=== PATIENT | male | born 1950 | race Caucasian/White ===

== ENCOUNTER 2017-01-02 06:25 | Day surgery (SDC) | payer OTHER, MEDICARE ==
[~2017-01-02] VITALS: Ht 193 cm; Wt 107.3 kg
[~2017-01-02 06:25] MED LIST: ACET-2321 PO; ASPI-558 PO; ATOR20TA59 PO; CALC600T86 PO; CETI10CA19 PO; FLUT16SP12 NS; LISI-15 PO; MULT-543 PO; OMEP20TA24 PO; POLY17PO6 PO
--- OUTSIDE RECORDS SUMMARY | 2017-01-02 06:29 | XMS REPORT | Referral Summary ---
Author Author [facility] Organization [facility] Address Unknown Phone Unavailable Care Team Providers Care Anesthetic Assistant Name Role Phone Myron Avila Primary Care Physician [phone] Encounter VC Date(s): 03/27/15 - 03/27/15 [facility] [address] [place] [address] Discharge Diagnosis: Pure hypercholesterolemia Discharge Diagnosis: Allergic rhinitis Discharge Diagnosis: Benign essential hypertension Discharge Diagnosis: Gastroesophageal reflux disease Discharge Disposition: 01-Home or Self Care Attending Physician: Papi Avila MD Admitting Physician: Papi Avila MD Vital Signs Most recent to 1 oldest [Reference Range]: Temperature Tympanic 35.7 degC [36.6-38.1 degC] *LOW* (03/27/15 10:07 AM) Peripheral Pulse 64 bpm Rate [60-100 bpm] (03/27/15 10:07 AM) Blood Pressure 130/71 mmHg [90-140/60-90 mmHg] (03/27/15 10:07 AM) Problem List Condition Effective Dates Status Health Status Informant Allergic Active rhinitis/hay fever(Confirmed) Allergic rhinitis Active (disorder)(Confirmed ) Allergies(Confirmed) Resolved Benign essential Active hypertension (disorder)(Confirmed ) BPH - history of BPH Resolved w/pro statism(Confirmed) Circumcision(Confirm Resolved ed) Foot pain, Active left(Confirmed) Gastroesophageal Active reflux disease (disorder)(Confirmed ) GERD Resolved (gastroesophageal reflux disease)(Confirmed) Hernia(Confirmed) Resolved History of - Resolved irregular prostate gland(Confirmed) Hyperlipidemia(Confi Resolved rmed) Hypertension(Confirm Resolved ed) IFG (impaired Active fasting glucose)(Confirmed) Pain in limb Active (finding)(Confirmed) Pure Active hypercholesterolemia (disorder)(Confirmed ) Tonsillectomy(Confir Resolved med) Allergies, Adverse Reactions, Alerts No Known Medication Allergies Medications Aspirin Low Strength 81 mg, Oral, Daily, 0 Refill(s) Start Date: 03/22/14 Status: Ordered atorvastatin 20 mg oral tablet See Instructions, TAKE ONE TABLET BY MOUTH DAILY, # 30 tabs, 5 Refill(s), eRx: [facility] #[id number], TAKE ONE TABLET BY MOUTH DAILY Start Date: 05/16/15 Status: Ordered Calcium 600+D 1 tabs, Oral, Daily, 0 Refill(s) Start Date: 03/23/14 Status: Ordered lisinopril-hydrochlorothiazide 20 mg-12.5 mg oral tablet See Instructions, TAKE ONE TABLET BY MOUTH ONE TIME A DAY, # 90 tabs, 1 Refill(s ), eRx: [facility] #[id number], TAKE ONE TABLET BY MOUTH ONE TIME A DAY Start Date: 05/16/15 Status: Ordered multivitamin 1 tabs, Oral, Daily, 0 Refill(s) Start Date: 03/23/14 Status: Ordered omeprazole 20 mg oral delayed release tablet tabs, Oral, Daily, 0 Refill(s) Start Date: 03/22/14 Status: Ordered Laguerre Stool Softener mg, Oral, BID, 0 Refill(s) Start Date: 06/26/14 Status: Ordered Tylenol Caplet 325 mg, Oral, q4hr, as needed for pain, 0 Refill(s) Start Date: 03/22/14 Status: Ordered ZyrTEC Daily, 0 Refill(s) Start Date: 06/28/15 Status: Ordered Results No data available for this section Immunizations Vaccine Date Refusal Reason tetanus/diphth/pertuss (Tdap) adult/adol 03/01/10 influenza virus vaccine, inactivated1 07/18/14 influenza virus vaccine, live 07/06/13 influenza virus vaccine, live 07/20/12 1Location History: See scanned document Procedures Procedure Date Related Diagnosis Body Site S/P left inguinal hernia repair 10/23/11 Cystoscopy - video 01/20/11 Prostate - transrectal needle biopsy of 01/20/11 prostate Rt inguinal hernia repair 08/11/08 Tonsillectomy and adenoidectomy 1970 Colonoscopy1 H/O circumcision 1DUE 2016. NEG on 10-26-06, Dr. So. Social History Social History Type Response Smoking Status Never smoker Assessment and Plan Extracted from: Title: CRMMP Author: Papi Avila MD Date: 03/27/15 Assessment/Plan Allergic rhinitis Benign essential hypertension Gastroesophageal reflux disease Pure hypercholesterolemia Orders: atorvastatin, 20 mg 1 tabs, Oral, Daily, # 30 tabs, 1 Refill(s), Pharmacy: [facility] #[id number], 1 tabs Oral Daily Restarted atorvastatin will recheck lipids in one month. Otherwise continue present care. History guidance provided. Follow-up 6 months regarding blood pressure or sooner if needed.
--- OUTSIDE RECORDS SUMMARY | 2017-01-02 06:29 | XMS REPORT | Referral Summary ---
Author Author [facility] Organization [facility] Address Unknown Phone Unavailable Care Team Providers Care Automation Qa Analyst Name Role Phone Myron Avila Primary Care Physician [phone] Encounter VC Date(s): 11/10/16 - 11/10/16 [facility], [address] [place] [address] Discharge Diagnosis: Sinusitis Discharge Disposition: 01-Home or Self Care Attending Physician: Papi Avila MD Admitting Physician: Papi Avila MD Vital Signs Most recent to 1 oldest [Reference Range]: Temperature Tympanic 36.4 degC [36.6-38.1 degC] *LOW* (11/10/16 11:36 AM) Blood Pressure 158/82 mmHg [90-140/60-90 mmHg] *HI* (11/10/16 11:36 AM) Problem List Condition Effective Dates Status [...] Reactions, Alerts No Known Medication Allergies Medications amoxicillin 875 mg oral tablet 875 mg 1 tabs, Oral, BID, X 10 days, # 20 tabs, 0 Refill(s), Pharmacy: [facility] #[id number], 1 tabs Oral BID,x10 days Start Date: 11/10/16 Stop Date: 11/20/16 Status: Ordered Aspirin Low Strength 81 mg, Oral, Daily, 0 Refill(s) Start Date: 03/22/14 Status: Ordered atorvastatin 20 mg oral tablet See Instructions, TAKE ONE TABLET BY MOUTH DAILY, # 90 tabs, 2 Refill(s), eRx: [facility] #[id number] Start Date: 10/08/16 Status: Ordered Calcium 600+D 1 tabs, Oral, Daily, 0 Refill(s) Start Date: 03/23/14 Status: Ordered fluticasone 50 mcg/inh nasal spray See Instructions, SPRAY TWO SPRAYS IN EACH NOSTRIL EVERY DAY NEEDED, # 16 unknown unit, 2 Refill(s), eRx: [facility] #[id number], SPRAY TWO SPRAYS IN EACH NOSTRIL EVERY DAY NEEDED Start Date: 07/15/16 Status: Ordered lisinopril-hydrochlorothiazide 20 mg-12.5 mg oral tablet See Instructions, TAKE ONE TABLET BY MOUTH ONE TIME A DAY, # 90 tabs, 1 Refill(s ), eRx: [facility] #[id number], TAKE ONE TABLET BY MOUTH ONE TIME A DAY Start Date: 05/19/16 Status: Ordered Mucinex 600 mg oral tablet, extended release 600 mg 1 tabs, Oral, q12hr, 0 Refill(s) Start Date: 11/10/16 Status: Ordered multivitamin 1 tabs, Oral, Daily, 0 Refill(s) Start Date: 03/23/14 Status: Ordered omeprazole 20 mg oral delayed release tablet tabs, Oral, Daily, 0 Refill(s) Start Date: 03/22/14 Status: Ordered Laguerre Stool Softener mg, Oral, BID, 0 Refill(s) Start Date: 06/26/14 Status: Ordered Tylenol Caplet 325 mg, Oral, q4hr, as needed for pain, 0 Refill(s) Start Date: 03/22/14 Status: Ordered Results No data available for this section Immunizations Given and Recorded Vaccine Date Status Refusal Reason tetanus/diphth/pertuss (Tdap) adult/adol 03/01/10 Recorded influenza virus vaccine, inactivated 06/23/16 Given influenza virus vaccine, inactivated 08/16/15 Given influenza virus vaccine, inactivated1 07/18/14 Recorded influenza virus vaccine, live 07/06/13 Given influenza virus vaccine, live 07/20/12 Given pneumococcal 13-valent conjugate vaccine 03/26/16 Given 1Location History: See scanned document Procedures Procedure [...] smoker Assessment and Plan Extracted from: Title: Acute OV-Congestion Author: Papi Avila MD Date: 11/10/16 Impression and Plan Diagnosis Sinusitis ([id number] J32.9, Discharge, Medical). Orders Orders (Selected) Prescriptions Prescribed amoxicillin 875 mg oral tablet: 875 mg=1 tabs, Oral, BID, for 10 days, 20 tabs, 0 Refill(s).
--- OUTSIDE RECORDS SUMMARY | 2017-01-02 06:29 | XMS REPORT | Referral Summary ---
Author Author [facility] Organization [facility] Address Unknown Phone Unavailable Care Team Providers Care Protection Agent Name Role Phone Myron Avila Primary Care Physician [phone] Encounter VC Date(s): 06/28/15 - 06/28/15 [facility] [address] [place] [address] [place] [address] [place] Discharge Diagnosis: Benign prostatic hyperplasia Discharge Diagnosis: Benign localized prostatic hyperplasia with lower urinary tract symptoms (LUTS) Discharge Disposition: -Home or Self Care Attending Physician: Vinod Bryan JR, MD Admitting Physician: Vinod Bryan JR, MD Vital Signs Most recent to 1 oldest [Reference Range]: Peripheral Pulse 76 bpm Rate [60-100 bpm] (06/28/15 10:00 AM) Blood Pressure 138/72 mmHg [90-140/60-90 mmHg] (06/28/15 10:00 AM) Problem List Condition Effective Dates Status [...] DAILY, # 30 tabs, 5 Refill(s), eRx: [facility] #[id number], TAKE ONE TABLET BY MOUTH DAILY Start Date: 05/16/15 Status: Ordered Calcium 600+D 1 tabs, Oral, Daily, 0 Refill(s) Start Date: 03/23/14 Status: Ordered lisinopril-hydrochlorothiazide 20 mg-12.5 mg oral tablet See Instructions, TAKE ONE TABLET BY MOUTH ONE TIME A DAY, # 90 tabs, 1 Refill(s ), eRx: [facility] #[id number], TAKE ONE TABLET BY MOUTH ONE TIME [...] smoker Assessment and Plan Extracted from: Title: Ambulatory Patient Education Author: Vinod Bryan JR, MD Date : 06/28/15 Follow Up With: Where: When: Papi Avila [address] [place] [address] [address]; Via [facility] [place], [place] [address] Business (1) Within 3 to 5 days Comments: Follow Up With: Where: When: Vinod Bryan [address] [facility] [address] [facility] [address]; Via [facility] [place] [address] Business (1) In 1 year 06/28/2016 Comments: Extracted from: Title: Office Visit Note Author: Vinod Bryan JR, MD Date: 06/28/15 Assessment/Plan 1.Benign prostatic hyperplasia patient's very minimally symptomatic. Not taking any prostate medication at present. His most recent PSA is this and 0.7. History of nodular prostate still is present on this prostate examination today. Recheck in my office in one year PSA a week before next visit or sooner if he has troubles with urination or seeing blood in his urine Benign localized prostatic hyperplasia with lower urinary tract symptoms (LUTS ) Ordered: Office Visit Level 3 Est [address]
--- OUTSIDE RECORDS SUMMARY | 2017-01-02 06:29 | XMS REPORT | Referral Summary ---
Author Author [facility] Organization [facility] Address Unknown Phone Unavailable Care Team Providers Care Diesel Locomotive Crane Operator Name Role Phone Myron Avila Primary Care Physician [phone] Encounter VC Date(s): 06/28/15 - 06/28/15 [facility] [address] [place] [address] [place] [address] [place] Discharge Diagnosis: Benign [...] DAILY, # 30 tabs, 5 Refill(s), eRx: [facility] #[id number], TAKE ONE TABLET BY MOUTH DAILY Start Date: 05/16/15 Status: Ordered Calcium 600+D 1 tabs, Oral, Daily, 0 Refill(s) Start Date: 03/23/14 Status: Ordered lisinopril-hydrochlorothiazide 20 mg-12.5 mg oral tablet See Instructions, TAKE ONE TABLET BY MOUTH ONE TIME A DAY, # 90 tabs, 1 Refill(s ), eRx: [facility] #[id number], TAKE ONE TABLET BY MOUTH ONE TIME [...] Follow Up With: Where: When: Papi Avila [address] [place] [address]; Via [facility] [place], [place] [address] Business (1) Within 3 to 5 days Comments: Follow Up With: Where: When: Vinod Bryan [address] [facility] [address]; Via [facility] [place], [place] [address] Business (1) In 1 year 06/28/2016 Comments: [...] ) Ordered: Office Visit Level 3 Est [address]
--- OUTSIDE RECORDS SUMMARY | 2017-01-02 06:29 | XMS REPORT | Referral Summary ---
Author Author [facility] Organization [facility] Address Unknown Phone Unavailable Care Team Providers Care Pricing Director Name Role Phone Myron Avila Primary Care Physician [phone] Encounter VC Date(s): 06/28/15 - 06/28/15 [facility] [address] [place] [address] [place] [address] [place] Discharge Diagnosis: Benign [...] DAILY, # 30 tabs, 5 Refill(s), eRx: [facility] #[id number], TAKE ONE TABLET BY MOUTH DAILY Start Date: 05/16/15 Status: Ordered Calcium 600+D 1 tabs, Oral, Daily, 0 Refill(s) Start Date: 03/23/14 Status: Ordered lisinopril-hydrochlorothiazide 20 mg-12.5 mg oral tablet See Instructions, TAKE ONE TABLET BY MOUTH ONE TIME A DAY, # 90 tabs, 1 Refill(s ), eRx: [facility] #[id number], TAKE ONE TABLET BY MOUTH ONE TIME [...] Follow Up With: Where: When: Papi Avila [address] [place] [address]; Via [facility] [place], [place] [address] Business (1) Within 3 to 5 days Comments: Follow Up With: Where: When: Vinod Bryan [address] [facility] [address]; Via [facility] [place] [address] Business (1) In 1 year 06/28/2016 Comments: [...] ) Ordered: Office Visit Level 3 Est [address]
--- OUTSIDE RECORDS SUMMARY | 2017-01-02 06:29 | XMS REPORT | Referral Summary ---
Author Author [facility] Organization [facility] Address Unknown Phone Unavailable Care Team Providers Care Film Painter Name Role Phone Myron Avila Primary Care Physician [phone] Encounter VC Date(s): 03/27/15 - 03/27/15 [facility] [address] [place] [address] [place] Discharge Diagnosis: Pure hypercholesterolemia [...] DAILY, # 30 tabs, 5 Refill(s), eRx: [facility] #[id number], TAKE ONE TABLET BY MOUTH DAILY Start Date: 05/16/15 Status: Ordered Calcium 600+D 1 tabs, Oral, Daily, 0 Refill(s) Start Date: 03/23/14 Status: Ordered lisinopril-hydrochlorothiazide 20 mg-12.5 mg oral tablet See Instructions, TAKE ONE TABLET BY MOUTH ONE TIME A DAY, # 90 tabs, 1 Refill(s ), eRx: [facility] #[id number], TAKE ONE TABLET BY MOUTH ONE TIME [...] Daily, # 30 tabs, 1 Refill(s), Pharmacy: [facility] #[id number], 1 tabs Oral Daily Restarted atorvastatin will recheck lipids in one month. Otherwise continue present care. History guidance provided. Follow-up 6 months regarding blood pressure or sooner if needed.
--- OUTSIDE RECORDS SUMMARY | 2017-01-02 06:30 | XMS REPORT | Referral Summary ---
Author Author [facility] Organization [facility] Address Unknown Phone Unavailable Care Team Providers Care Manuscript Editor Name Role Phone Myron Avila Primary Care Physician [phone] Encounter VC Date(s): 06/28/15 - 06/28/15 [facility] [address] [place] [address] [place] [address] [place] Discharge Diagnosis: Benign [...] DAILY, # 30 tabs, 5 Refill(s), eRx: [facility] #[id number], TAKE ONE TABLET BY MOUTH DAILY Start Date: 05/16/15 Status: Ordered Calcium 600+D 1 tabs, Oral, Daily, 0 Refill(s) Start Date: 03/23/14 Status: Ordered lisinopril-hydrochlorothiazide 20 mg-12.5 mg oral tablet See Instructions, TAKE ONE TABLET BY MOUTH ONE TIME A DAY, # 90 tabs, 1 Refill(s ), eRx: [facility] #[id number], TAKE ONE TABLET BY MOUTH ONE TIME [...] Follow Up With: Where: When: Papi Avila [address] [place] [address] [address]; Via [facility] [place] [address] Business (1) Within 3 to 5 days Comments: Follow Up With: Where: When: Vinod Bryan [address] [facility] [address]; Via [facility] [place] [address] Business (1) In 1 year 06/28/2016 Comments: [...] ) Ordered: Office Visit Level 3 Est [address]
--- OUTSIDE RECORDS SUMMARY | 2017-01-02 06:30 | XMS REPORT | Referral Summary ---
Author Author [facility] Organization [facility] Address Unknown Phone Unavailable Care Team Providers Care Bean Sorter Name Role Phone Myron Avila Primary Care Physician [phone] Encounter VC Date(s): 09/24/15 - 09/24/15 [facility], [address] [place] [address] [place] Discharge Diagnosis: Benign essential hypertension Discharge Disposition: 01-Home or Self Care Attending Physician: Papi Avila MD Admitting Physician: Papi Avila MD Vital Signs Most recent to 1 oldest [Reference Range]: Temperature Tympanic 36.3 degC [36.6-38.1 degC] *LOW* (09/24/15 11:23 AM) Peripheral Pulse 64 bpm Rate [60-100 bpm] (09/24/15 11:23 AM) Blood Pressure 142/80 mmHg [90-140/60-90 mmHg] *HI* (09/24/15 11:23 AM) Problem List Condition Effective Dates Status [...] Status: Ordered atorvastatin 20 mg oral tablet 20 mg 1 tabs, Oral, Daily, # 90 tabs, 3 Refill(s), Pharmacy: [facility] # [id number], 1 tabs Oral Daily Start Date: 09/24/15 Status: Ordered Calcium 600+D 1 tabs, Oral, Daily, 0 Refill(s) Start Date: 03/23/14 Status: Ordered lisinopril-hydrochlorothiazide 20 mg-12.5 mg oral tablet See Instructions, TAKE ONE TABLET BY MOUTH ONE TIME A DAY, # 90 tabs, 1 Refill(s ), eRx: [facility] #[id number], TAKE ONE TABLET BY MOUTH ONE TIME [...] tetanus/diphth/pertuss (Tdap) adult/adol 03/01/10 influenza virus vaccine, inactivated 08/16/15 influenza virus vaccine, inactivated1 07/18/14 influenza virus [...] smoker Assessment and Plan Extracted from: Title: Office Visit Note Author: Papi Avila MD Date: 09/24/15 Assessment/Plan Benign essential hypertension Orders: atorvastatin, 20 mg 1 tabs, Oral, Daily, # 90 tabs, 3 Refill(s), Pharmacy: [facility] #[id number], 1 tabs Oral Daily Overall the blood pressure seems to be adequately controlled and we will continue current medications. His cuff seems to be accurate and we discussed appropriate technique but will also continue to use the cuff. Follow-up 6 months or as needed.
--- OUTSIDE RECORDS SUMMARY | 2017-01-02 06:30 | XMS REPORT | Referral Summary ---
Author Author [facility] Organization [facility] Address Unknown Phone Unavailable Care Team Providers Care Acid Tender Name Role Phone Myron Avila Primary Care Physician [phone] Encounter VC Date(s): 03/27/15 - 03/27/15 [facility] [address] [place] [address] [place] Discharge Diagnosis: [...] DAILY, # 30 tabs, 5 Refill(s), eRx: [facility] #[id number], TAKE ONE TABLET BY MOUTH DAILY Start Date: 05/16/15 Status: Ordered Calcium 600+D 1 tabs, Oral, Daily, 0 Refill(s) Start Date: 03/23/14 Status: Ordered lisinopril-hydrochlorothiazide 20 mg-12.5 mg oral tablet See Instructions, TAKE ONE TABLET BY MOUTH ONE TIME A DAY, # 90 tabs, 1 Refill(s ), eRx: [facility] #[id number], TAKE ONE TABLET BY MOUTH ONE TIME [...] Daily, # 30 tabs, 1 Refill(s), Pharmacy: [facility] #[id number], 1 tabs Oral Daily Restarted atorvastatin will recheck lipids in one month. Otherwise continue present care. History guidance provided. Follow-up 6 months regarding blood pressure or sooner if needed.
--- OUTSIDE RECORDS SUMMARY | 2017-01-02 06:30 | XMS REPORT | Referral Summary ---
Author Author [facility] Organization [facility] Address Unknown Phone Unavailable Care Team Providers Care Lease Picker Name Role Phone Myron Avila Primary Care Physician [phone] Encounter VC Date(s): 06/23/16 - 06/23/16 [facility] [address] [place] [address] [place] Discharge Diagnosis: Benign essential hypertension Discharge Diagnosis: Gastroesophageal reflux disease Discharge Diagnosis: Rising PSA level Discharge Diagnosis: BPH with obstruction/lower urinary tract symptoms Discharge Disposition: 01-Home or Self Care Attending Physician: Papi Avila MD Admitting Physician: Papi Avila MD Vital Signs Most recent to 1 oldest [Reference Range]: Peripheral Pulse 77 bpm Rate [60-100 bpm] (06/23/16 11:16 AM) Blood Pressure 130/78 mmHg [90-140/60-90 mmHg] (06/23/16 11:16 AM) Problem List Condition Effective Dates Status [...] Daily, # 90 tabs, 3 Refill(s), Pharmacy: [facility] # [id number], 1 tabs Oral Daily Start Date: 09/24/15 Status: Ordered Calcium 600+D 1 tabs, Oral, Daily, 0 Refill(s) Start Date: 03/23/14 Status: Ordered Flonase 50 mcg/inh nasal spray See Instructions, SPRAY TWO SPRAYS IN EACH NOSTRIL EVERY DAY NEEDED, # 16 unknown unit, 3 Refill(s), eRx: [facility] #[id number], SPRAY TWO SPRAYS IN EACH NOSTRIL EVERY DAY NEEDED Start Date: 12/25/15 Status: Ordered lisinopril-hydrochlorothiazide 20 mg-12.5 mg oral tablet See Instructions, TAKE ONE TABLET BY MOUTH ONE TIME A DAY, # 90 tabs, 1 Refill(s ), eRx: [facility] #[id number], TAKE ONE TABLET BY MOUTH ONE TIME A DAY Start Date: 05/19/16 Status: Ordered multivitamin 1 tabs, Oral, Daily, [...] (Tdap) adult/adol 03/01/10 influenza virus vaccine, inactivated 06/23/16 influenza virus vaccine, inactivated 08/16/15 influenza virus vaccine, inactivated1 07/18/14 influenza virus vaccine, live 07/06/13 influenza virus vaccine, live 07/20/12 pneumococcal 13-valent conjugate vaccine 03/26/16 1Location History: See scanned document Procedures Procedure [...] Assessment and Plan Extracted from: Title: Acute OV-Prostate Follow Up Author: Papi Avila MD Date: Impression and Plan Diagnosis Benign essential hypertension ([id number] I10, Discharge, Medical). BPH with obstruction/lower urinary tract symptoms (CRG60-RK N40.1, Discharge, Medical). Gastroesophageal reflux disease ([id number] K21.9, Discharge, Medical). Rising PSA level (TAI30-KI R97.2, Discharge, Medical).
--- OUTSIDE RECORDS SUMMARY | 2017-01-02 06:30 | XMS REPORT | Referral Summary ---
Author Author [facility] Organization [facility] Address Unknown Phone Unavailable Care Team Providers Care Criminal Researcher Name Role Phone Myron Avila Primary Care Physician [phone] Encounter VC Date(s): 06/28/15 - 06/28/15 [facility] [address] [place] [address] [place] [address] [place] Discharge Diagnosis: Benign [...] # 30 tabs, 5 Refill(s), eRx: [facility] #[id number], TAKE ONE TABLET BY MOUTH DAILY Start Date: 05/16/15 Status: Ordered Calcium 600+D 1 tabs, Oral, Daily, 0 Refill(s) Start Date: 03/23/14 Status: Ordered lisinopril-hydrochlorothiazide 20 mg-12.5 mg oral tablet See Instructions, TAKE ONE TABLET BY MOUTH ONE TIME A DAY, # 90 tabs, 1 Refill(s ), eRx: [facility] #[id number], TAKE ONE TABLET BY MOUTH ONE TIME [...] Follow Up With: Where: When: Papi Avila [address] [place] [address]; Via [facility] [place], [place] [address] Business (1) Within 3 to 5 days Comments: Follow Up With: Where: When: Vinod Bryan [address] [facility] [address]; Via [facility] [place], [place] [address] Business (1) In 1 year 06/28/2016 Comments: [...] ) Ordered: Office Visit Level 3 Est [id number]
--- OUTSIDE RECORDS SUMMARY | 2017-01-02 06:30 | XMS REPORT | Referral Summary ---
Author Author [facility] Organization [facility] Address Unknown Phone Unavailable Care Team Providers Care Rehabilitation Nurse Name Role Phone Myron Avila Primary Care Physician [phone] Encounter VC Date(s): 03/27/15 - 03/27/15 [facility] [address] [place] [address] Discharge Diagnosis: [...] DAILY, # 30 tabs, 5 Refill(s), eRx: [facility] #[id number], TAKE ONE TABLET BY MOUTH DAILY Start Date: 05/16/15 Status: Ordered Calcium 600+D 1 tabs, Oral, Daily, 0 Refill(s) Start Date: 03/23/14 Status: Ordered lisinopril-hydrochlorothiazide 20 mg-12.5 mg oral tablet See Instructions, TAKE ONE TABLET BY MOUTH ONE TIME A DAY, # 90 tabs, 1 Refill(s ), eRx: [facility] #[id number], TAKE ONE TABLET BY MOUTH ONE TIME [...] Daily, # 30 tabs, 1 Refill(s), Pharmacy: [facility] #[id number], 1 tabs Oral Daily Restarted atorvastatin will recheck lipids in one month. Otherwise continue present care. History guidance provided. Follow-up 6 months regarding blood pressure or sooner if needed.
--- OUTSIDE RECORDS SUMMARY | 2017-01-02 06:30 | XMS REPORT | Referral Summary ---
Author Author [facility] Organization [facility] Address Unknown Phone Unavailable Care Team Providers Care Ui Software Developer Name Role Phone Myron Avila Primary Care Physician [phone] Encounter VC Date(s): 03/27/15 - 03/27/15 [facility] [address] [place] [address] Discharge Diagnosis: [...] # 30 tabs, 5 Refill(s), eRx: [facility] #[id number], TAKE ONE TABLET BY MOUTH DAILY Start Date: 05/16/15 Status: Ordered Calcium 600+D 1 tabs, Oral, Daily, 0 Refill(s) Start Date: 03/23/14 Status: Ordered lisinopril-hydrochlorothiazide 20 mg-12.5 mg oral tablet See Instructions, TAKE ONE TABLET BY MOUTH ONE TIME A DAY, # 90 tabs, 1 Refill(s ), eRx: [facility] #[id number], TAKE ONE TABLET BY MOUTH ONE TIME [...] Daily, # 30 tabs, 1 Refill(s), Pharmacy: [facility] #[id number], 1 tabs Oral Daily Restarted atorvastatin will recheck lipids in one month. Otherwise continue present care. History guidance provided. Follow-up 6 months regarding blood pressure or sooner if needed.
--- OUTSIDE RECORDS SUMMARY | 2017-01-02 06:30 | XMS REPORT | Referral Summary ---
Author Author [facility] Organization [facility] Address Unknown Phone Unavailable Care Team Providers Care Stock Or Delivery Clerk Name Role Phone Myron Avila Primary Care Physician [phone] Encounter VC Date(s): 06/28/15 - 06/28/15 [facility] [address] [place] [address] [place] [address] Discharge Diagnosis: Benign [...] DAILY, # 30 tabs, 5 Refill(s), eRx: [facility] #[id number], TAKE ONE TABLET BY MOUTH DAILY Start Date: 05/16/15 Status: Ordered Calcium 600+D 1 tabs, Oral, Daily, 0 Refill(s) Start Date: 03/23/14 Status: Ordered lisinopril-hydrochlorothiazide 20 mg-12.5 mg oral tablet See Instructions, TAKE ONE TABLET BY MOUTH ONE TIME A DAY, # 90 tabs, 1 Refill(s ), eRx: [facility] #[id number], TAKE ONE TABLET BY MOUTH ONE TIME [...] Follow Up With: Where: When: Papi Avila [address] [place] [address]; Via [facility] [place] [address] Business (1) Within 3 to 5 days Comments: Follow Up With: Where: When: Vinod Bryan [address] [facility] [address] [facility] [address]; Via [facility] [place] [address] Business (1) In 1 year 06/28/2016 Comments: [...] ) Ordered: Office Visit Level 3 Est [address]
--- OUTSIDE RECORDS SUMMARY | 2017-01-02 06:30 | XMS REPORT | Continuity of Care Document ---
Author Author [facility] Organization [facility] Address Unknown Phone Unavailable Allergies Active Description Code Type Severity Reaction Onset Reported/Identified Relationship to Patient Clinical Status Yes No Known Medication Allergies NKMA N/A N/A 03/23/2014 Medications Problems Procedures Results Encounters ACCT No. Visit Date/Time Discharge Status Pt. Type Provider Facility Loc./Unit Complaint [id number] 12/22/2016 10:08:00 2016 23:59:00 DIS Outpatient Papi Avila V [facility] 6 month HTN repeat PSA [id number] 11/10/2016 11:31:00 2016 23:59:00 DIS Outpatient Papi Avila V [facility] COUGH SINUS [id number] 06/23/2016 11:05:00 2015 23:59:00 DIS Outpatient Papi Avila V [facility] TCPA YEARLY CHECK PROSTATE NORMALLY SEE DR BRYAN [id number] 03/26/2016 10:28:00 2015 23:59:00 DIS Outpatient Papi Avila V [facility] CRMMP [id number] 09/24/2015 11:03:00 2014 23:59:00 DIS Outpatient Papi Avila V [facility] 6MTH RCK CDM HTN [id number] 08/16/2015 15:41:00 2014 23:59:00 DIS Outpatient Papi Avila V [facility] FLU SHOT [id number] 06/28/2015 09:45:00 2014 23:59:00 DIS Outpatient Vinod Bryan [facility] Uro annual recheck [id number] 03/27/2015 09:51:00 2014 23:59:00 DIS Outpatient Papi Avila V [facility] 6MTH RCK CRMMP [id number] 09/22/2014 09:32:00 2013 23:59:00 DIS Outpatient Papi Avila V [facility] 6 mth cdm htn [id number] 09/07/2014 10:13:00 Document Registration
--- OUTSIDE RECORDS SUMMARY | 2017-01-02 06:30 | XMS REPORT | Referral Summary ---
Author Author [facility] Organization [facility] Address Unknown Phone Unavailable Care Team Providers Care Electric Gas Appliances Demonstrator Name Role Phone Myron Avila Primary Care Physician [phone] Encounter VC Date(s): 03/27/15 - 03/27/15 [facility] [address] [place] [address] [place] Discharge Diagnosis: [...] 30 tabs, 5 Refill(s), eRx: [facility] #[id number], TAKE ONE TABLET BY MOUTH DAILY Start Date: 05/16/15 Status: Ordered Calcium 600+D 1 tabs, Oral, Daily, 0 Refill(s) Start Date: 03/23/14 Status: Ordered lisinopril-hydrochlorothiazide 20 mg-12.5 mg oral tablet See Instructions, TAKE ONE TABLET BY MOUTH ONE TIME A DAY, # 90 tabs, 1 Refill(s ), eRx: [facility] #[id number], TAKE ONE TABLET BY MOUTH ONE TIME [...] Daily, # 30 tabs, 1 Refill(s), Pharmacy: [facility] #[id number], 1 tabs Oral Daily Restarted atorvastatin will recheck lipids in one month. Otherwise continue present care. History guidance provided. Follow-up 6 months regarding blood pressure or sooner if needed.
--- OUTSIDE RECORDS SUMMARY | 2017-01-02 06:30 | XMS REPORT | Referral Summary ---
Author Author [facility] Organization [facility] Address Unknown Phone Unavailable Care Team Providers Care Manager Agency Name Role Phone Myron Avila Primary Care Physician [phone] Encounter VC Date(s): 08/16/15 - 08/16/15 [facility] [address] [place] [address] [place] Discharge Disposition: 01-Home or Self Care Attending Physician: Papi Avila MD Admitting Physician: Papi Avila MD Vital Signs No data available for this section Problem List Condition Effective Dates Status Health [...] Refill(s), eRx: [facility] #[id number], TAKE ONE TABLET BY MOUTH DAILY Start Date: 05/16/15 Status: Ordered Calcium 600+D 1 tabs, Oral, Daily, 0 Refill(s) Start Date: 03/23/14 Status: Ordered lisinopril-hydrochlorothiazide 20 mg-12.5 mg oral tablet See Instructions, TAKE ONE TABLET BY MOUTH ONE TIME A DAY, # 90 tabs, 1 Refill(s ), eRx: [facility] #[id number], TAKE ONE TABLET BY MOUTH ONE TIME [...] Smoking Status Never smoker Assessment and Plan No data available for this section
--- OUTSIDE RECORDS SUMMARY | 2017-01-02 06:30 | XMS REPORT | Referral Summary ---
Author Author [facility] Organization [facility] Address Unknown Phone Unavailable Care Team Providers Care Salt Manager Name Role Phone Myron Avila Primary Care Physician [phone] Encounter VC Date(s): 06/28/15 - 06/28/15 [facility] [address] [place] [address] [place] [address] [place] Discharge Diagnosis: Benign [...] Refill(s), eRx: [facility] #[id number], TAKE ONE TABLET BY MOUTH DAILY Start Date: 05/16/15 Status: Ordered Calcium 600+D 1 tabs, Oral, Daily, 0 Refill(s) Start Date: 03/23/14 Status: Ordered lisinopril-hydrochlorothiazide 20 mg-12.5 mg oral tablet See Instructions, TAKE ONE TABLET BY MOUTH ONE TIME A DAY, # 90 tabs, 1 Refill(s ), eRx: [facility] #[id number], TAKE ONE TABLET BY MOUTH ONE TIME [...] Follow Up With: Where: When: Papi Avila [address] [place] [address]; Via [facility] [place], [place] [address] Business (1) Within 3 to 5 days Comments: Follow Up With: Where: When: Vinod Bryan [address] [facility] [address]; Via [facility] [place] [address] Business (1) In 1 year 06/28/2016 Comments: [...] ) Ordered: Office Visit Level 3 Est [address]68
--- OUTSIDE RECORDS SUMMARY | 2017-01-02 06:30 | XMS REPORT | Referral Summary ---
Author Author [facility] Organization [facility] Address Unknown Phone Unavailable Care Team Providers Care Television Parts Tester Name Role Phone Myron Avila Primary Care Physician [phone] Encounter VC Date(s): 06/28/15 - 06/28/15 [facility] [address] [place] [address] [place] [address] [place] Discharge Diagnosis: Benign [...] Daily, # 90 tabs, 3 Refill(s), Pharmacy: [facility] # [id number], 1 tabs Oral Daily Start Date: 09/24/15 Status: Ordered Calcium 600+D 1 tabs, Oral, Daily, 0 Refill(s) Start Date: 03/23/14 Status: Ordered Flonase 50 mcg/inh nasal spray See Instructions, SPRAY TWO SPRAYS IN EACH NOSTRIL EVERY DAY NEEDED, # 16 unknown unit, 3 Refill(s), eRx: [facility] #[id number], SPRAY TWO SPRAYS IN EACH NOSTRIL EVERY DAY NEEDED Start Date: 12/25/15 Status: Ordered lisinopril-hydrochlorothiazide 20 mg-12.5 mg oral tablet See Instructions, TAKE ONE TABLET BY MOUTH ONE TIME A DAY, # 90 tabs, 1 Refill(s ), eRx: [facility] #[id number], TAKE ONE TABLET BY MOUTH ONE TIME A DAY Start Date: 11/26/15 Status: Ordered multivitamin 1 tabs, Oral, Daily, [...] Follow Up With: Where: When: Papi Avila [address] [place] [address] Drive; Via [facility] [place] [address] Business (1) Within 3 to 5 days Comments: Follow Up With: Where: When: Vinod Gabriel [address] [facility] [address]; Via [facility] [place], [place] [id number] CEN[place] (1) In 1 year 06/28/2016 Comments: Extracted [...] ) Ordered: Office Visit Level 3 Est [address]
--- OUTSIDE RECORDS SUMMARY | 2017-01-02 06:30 | XMS REPORT | Referral Summary ---
Author Author [facility] Organization [facility] Address Unknown Phone Unavailable Care Team Providers Care Kiln Operator Name Role Phone Myron Avila Primary Care Physician [phone] Encounter VC Date(s): 06/28/15 - 06/28/15 [facility] [address] [place] [address] [place] [address] [place] Discharge Diagnosis: Benign [...] DAILY, # 30 tabs, 5 Refill(s), eRx: [facility] #[id number], TAKE ONE TABLET BY MOUTH DAILY Start Date: 05/16/15 Status: Ordered Calcium 600+D 1 tabs, Oral, Daily, 0 Refill(s) Start Date: 03/23/14 Status: Ordered lisinopril-hydrochlorothiazide 20 mg-12.5 mg oral tablet See Instructions, TAKE ONE TABLET BY MOUTH ONE TIME A DAY, # 90 tabs, 1 Refill(s ), eRx: [facility] #[id number], TAKE ONE TABLET BY MOUTH ONE TIME [...] 06/28/15 Follow Up With: Where: When: Papi Avlia [address] [place] [address] [address]; Via [facility] [place] [address] Business (1) Within 3 to 5 days Comments: Follow Up With: Where: When: Vinod Bryan [address] [facility] [address]; Via [facility] [place] [address] Business (1) In 1 year 06/28/2016 Comments: [...] ) Ordered: Office Visit Level 3 Est [address]
--- OUTSIDE RECORDS SUMMARY | 2017-01-02 06:30 | XMS REPORT | Referral Summary ---
Author Author [facility] Organization [facility] Address Unknown Phone Unavailable Care Team Providers Care Independent Insurance Adjuster Name Role Phone Myron Avila Primary Care Physician [phone] Encounter VC Date(s): 03/27/15 - 03/27/15 [facility] [address] [place] [address] [place] Discharge Diagnosis: [...] # 90 tabs, 3 Refill(s), Pharmacy: [facility] # [id number], 1 tabs Oral Daily Start Date: 09/24/15 Status: Ordered Calcium 600+D 1 tabs, Oral, Daily, 0 Refill(s) Start Date: 03/23/14 Status: Ordered lisinopril-hydrochlorothiazide 20 mg-12.5 mg oral tablet See Instructions, TAKE ONE TABLET BY MOUTH ONE TIME A DAY, # 90 tabs, 1 Refill(s ), eRx: [facility] #[id number], TAKE ONE TABLET BY MOUTH ONE TIME [...] Daily, # 30 tabs, 1 Refill(s), Pharmacy: [facility] #[id number], 1 tabs Oral Daily Restarted atorvastatin will recheck lipids in one month. Otherwise continue present care. History guidance provided. Follow-up 6 months regarding blood pressure or sooner if needed.
[2017-01-02] MEDS ORDERED: LIDOCAINE 1% (10mg/ml) 2ml SDV INJ ONE (07:00)
[2017-01-02] MEDS ORDERED: LR 1,000 ML IV SCH (07:00)
[2017-01-02 07:03] VITALS: Ht 193 cm; Wt 107.3 kg
[2017-01-02 07:04] VITALS: BP 135/86; PULSE 78; RESP 16; TEMP 98.6; O2SAT 95
--- NOTE | 2017-01-02 07:22 | ANESPREOP ---
Anesthesia Record Date and Time DATE: 01/02/17 TIME: 07:20 Pre-Op Diagnosis crtcs Proposed Surgical Procedure COLONOSCOPY Allergies: Coded Allergies: No Known Drug Allergies (Verified Allergy, Unknown, 08/10/08) Ht/Wt/BMI Height: 6 ' 4.00 " Weight: 107.300 kg BMI: 28.8 kg/m2 Vital Signs Date Time Temp Pulse Resp B/P Pulse Ox O2 Delivery O2 Flow Rate FiO2 01/02/17 07:04 98.6 78 16 135/86 95 Room Air Medications Inpatient Medications Current Medications Medications (Trade) Dose Ordered Sig/Homar Start Time Stop Time Status Last Admin Dose Admin Lactated Ringer's (Lactated Ringers) 1,000 ml @ 30 mls/hr Q24H 01/02/17 07:00 Acetaminophen (Tylenol) 325 Mg Tablet, 1-2 TAB PO QID PRN for PAIN, (Reported) Aspirin (Aspir 81) 81 Mg Tablet.dr, 81 MG PO DAILY, (Reported) Atorvastatin Calcium (Atorvastatin Calcium) 20 Mg Tablet, 1 TAB PO DAILY, ( Reported) Calcium Carbonate (Calcium) 600 Mg Tablet, 600 MG PO DAILY, (Reported) Cetirizine HCl (Zyrtec) 10 Mg Capsule, 1 CAP PO DAILY PRN for ALLERY SYMPTOMS, ( Reported) Fluticasone Propionate (Flonase) 16 Gm [place].susp, 16 GM NS PRN, (Reported) Lisinopril/Hydrochlorothiazide (Lisinopril-Hctz 20-12.5 Tab) 1 Tab Tablet, 1 TAB PO DAILY, (Reported) Multivitamins (Multiple Vitamin) 1 Tab Tablet, 1 TAB PO DAILY, (Reported) Omeprazole (Prilosec) 20 Mg Tablet.dr, 20 MG PO DAILY, (Reported) Polyethylene Glycol 3350 (Miralax) 17 Gm Powd.pack, 17 G PO DAILY PRN for PRN ORDERS, (Reported) Take 17 Grams (1 capful), by mouth, once a day. Currently on Beta Estrellita: No Medical/Surgical History Anesthesia PMH: Reports: *Hypertension (PER H&P), Arthritis (FEET), Obesity, Reflux (PER H&P), Denies: *Angina, *NM, Anesthesia Reactions (NO AIRWAY ISSUES) , CHF, Cancer, Deep Vein Thrombosis, Glaucoma, Hepatitis, Hiatal Hernia, Malignant Hyperthermia, Rheumatic Fever Smoking Status: Never smoker Has pt. smoked today?: No Use Chewing Tobacco?: No Second Hand Exposure: No Substance Use Type: does not use Substance last used: unknown Alcohol Intake: rarely Last Drink: unknown Past Surgical History Orthopedic Surgeries: No Abdominal Surgeries: Yes - RAMIN. INGUINAL HERNIA REPAIR PER H&P Genitourinary Surgeries: Yes - CYSTOSCOPY PER H&P Cardiac Surgeries: No Endocrine Surgeries: No Reproductive Surgeries: Yes - CIRCUMCISION PER H&P Neurological Surgeries: No Ear Surgeries: No Nose Surgeries: No Throat Surgeries: Yes - T&A PER H&P Other Surgeries: Yes - COLONOSCOPY, PROSTATE BIOPSY PER H&P Anesthesia Adverse Reactions: FOUND none Family Hx of Anesthesia Advers: none Hx of Motion Sickness: No Pertinent Findings EKG Rhythm: Sinus Rhythm Physical Exam Respiratory: Bilat breath sounds equal, Lungs clear Cardiovascular: FOUND Regular rate, rhythm, FOUND No murmur Airway Assessment Mallampati Score: II TMD: 3 Fingerbreadths Neck Extension: Good Overall Assessment: May Be Diff Mask Vent., May Be Diff Intubation ASA: 2 Plan Anesthesia Plan: TIVA Discussion Discussed risks/options/alternatives of anesthesia and questions answered. Patient consents. Nursing pain assessment noted. Present: Spouse Attestation Statement Prior to the delivery of any anesthetic medication, I examined the patient, developed the plan, obtained the patient's consent and discussed the risk and benefits of the procedure with the patient/guardian. BRIDGETT DYER CRNA Jan 02, 2017 07:22
[2017-01-02] MEDS ORDERED: PROPOFOL 500mg 50 ML IV ONE (08:18)
[2017-01-02] MEDS ORDERED: LIDOCAINE 1% (10mg/ml) 2ml SDV ONE (08:18)
[2017-01-02 08:44] VITALS: BP 115/57; PULSE 59; RESP 14; TEMP 97.1; O2SAT 93
[2017-01-02 08:59] VITALS: BP 112/59; PULSE 59; RESP 16; O2SAT 93
[2017-01-02 09:14] VITALS: BP 126/68; PULSE 63; RESP 16; O2SAT 97
[2017-01-02 09:29] VITALS: BP 150/76; PULSE 62; RESP 16; O2SAT 97
--- NOTE | 2017-01-02 09:53 | ANESPO ---
Post-Op Note Date 01/02/17 Time: 09:53 Status Pt Participated in Evaluation: Pt participated in person Vital Signs Date Time Temp Pulse Resp B/P Pulse Ox O2 Delivery O2 Flow Rate FiO2 01/02/17 09:29 62 16 150/76 97 Room Air 01/02/17 08:44 97.1 Respiratory Function: Airway patent, Regular respirations Cardiovascular Function: Regular pulse Mental Status: Alert/oriented Pain Level Intensity: 0 Hydration: Taking po fluids Complications during Recovery None apparent Post-Anesthesia Notes pt. constantine. well Follow-Up Instructions Instructions Per Surgeon Additional Information none BRIDGETT DYER CRNA Jan 02, 2017 09:53
--- NOTE | 2017-01-02 14:42 | OPNOTEF ---
DATE OF SERVICE 01/02/2017 SURGEON Brayden So MD PREOPERATIVE DIAGNOSIS Colorectal cancer surveillance. POSTOPERATIVE DIAGNOSIS Colorectal cancer surveillance, colonic polyp x1 at hepatic flexure, minimal diverticulosis. PROCEDURE Colonoscopy with polypectomy via cold biopsy technique. ANESTHESIA TIVA BRIEF HISTORY/INDICATIONS Mr. Dawson is a 66-year-old gentleman who presents today to [facility] to undergo a colonoscopy to serve as a portion of his overall colorectal cancer surveillance. For completeness please refer to notes included in the patient's chart. FINDINGS Upon colonoscopy, the patient was found to have a few scattered diverticula throughout the colon. He was found to have a single polyp at the hepatic flexure that was on the order of about 5-6 mm in diameter and removed in its entirety via cold biopsy technique. There was no evidence for angiodysplastic lesions or hunter malignancies. DESCRIPTION OF PROCEDURE After informed consent was obtained patient brought to the endoscopy suite and placed on the table in left lateral decubitus position. The patient subsequently underwent total intravenous anesthesia by the nurse car restorer at my request. Formal time-out was then completed. Next a digital rectal examination was performed. Normal sphincter tone. No rectal masses were appreciated. An Olympus colonoscope was inserted through the anus and advanced through the lumen of the colon under direct visualization at all times until the cecum was ascertained. Triangulation of the teniae coli, ileocecal valve and appendiceal lumen were all visualized. Scope was then slowly withdrawn again maintaining visualization of the lumen at all times. As the scope was being slowly withdrawn, a single polyp at the hepatic flexure was identified as discussed above. This polyp was grasped and removed in its entirety via cold biopsy technique. Patient was also found to have a few scattered diverticula within the ascending colon as well as within the descending colon as the colonoscope was being withdrawn. There was no evidence for angiodysplastic lesions or hunter malignancies. Once the colonoscope was withdrawn back to the rectal vault, a J-maneuver was then performed. No worrisome perianal pathology was noted. The patient was found to have a benign-appearing anal papilla. Scope was allowed to straighten and withdrawn through the anal verge. The patient tolerated the procedure without difficulty and was sent back to the preop area in stable condition. Await the biopsy results from today's polypectomy and will proceed accordingly with further recommendations thereafter. BRITTANY
== END 2017-01-02 09:56 | disposition home or self-care (01) ==
LOC: NSC 06:25
PROVIDERS: ATTEND Surgery
DX: Z12.11 Encounter for screening for malignant neoplasm of colon (principal); D12.3 Benign neoplasm of transverse colon; K57.30 Diverticulosis of large intestine without perforation or abscess without bleeding; I10 Essential (primary) hypertension; K21.9 Gastro-esophageal reflux disease without esophagitis; R73.01 Impaired fasting glucose; E78.00 Pure hypercholesterolemia, unspecified; J30.1 Allergic rhinitis due to pollen; Z79.82 Long term (current) use of aspirin; Z79.899 Other long term (current) drug therapy
CPT/HCPCS: 45380; J7120